=== PATIENT | female | born 1965 | race Caucasian/White ===

== ENCOUNTER → 2023-10-17 06:23 | Day surgery (SDC) | payer OTHER, SELFPAY ==
[2023-10-17 09:57] LABS: Glucose - Point of Care 108 mg/dl (70-99)
== END ==
LOC: GI 06:23
PROVIDERS: ATTENDING PHYSICIAN Specialist
DX: K22.89 Other specified disease of esophagus (principal); K31.7 Polyp of stomach and duodenum; K31.89 Other diseases of stomach and duodenum; R12 Heartburn; R05.3 Chronic cough; Z83.79 Family history of other diseases of the digestive system
CPT/HCPCS: 43239; 88305; 82962

== ENCOUNTER → 2024-02-18 09:44 | Outpatient (REF) | payer OTHER, SELFPAY | LOC: HWRAD 09:44 | PROVIDERS: ATTENDING PHYSICIAN Family Medicine | DX: E04.1 Nontoxic single thyroid nodule (principal); R74.8 Abnormal levels of other serum enzymes | CPT/HCPCS: 76536; 76700 ==